=== PATIENT | female | born 1965 | race Caucasian/White ===

== ENCOUNTER 2017-06-26 09:40 | Day surgery (SDC) | payer OTHER ==
[~2017-06-26] VITALS: Ht 157.5 cm; Wt 56.7 kg
[2017-06-26 10:01] VITALS: BP 134/79
[2017-06-26 14:14] VITALS: BP 135/73
== END 2017-06-26 13:20 | disposition home or self-care (01) ==
LOC: GI 09:40 → OR 12:00 → GI 12:00
PROVIDERS: Internal Medicine Gastroenterology
PROC: 0D758ZZ Dilation of Esophagus, Via Natural or Artificial Opening Endoscopic (ICD-10-PCS; principal; 2017-06-26 10:30)
PROC: 0DB68ZX Excision of Stomach, Via Natural or Artificial Opening Endoscopic, Diagnostic (ICD-10-PCS; 2017-06-26 10:30)
PROC: 0DB58ZX Excision of Esophagus, Via Natural or Artificial Opening Endoscopic, Diagnostic (ICD-10-PCS; 2017-06-26 10:30)
PROC: 0DBN8ZZ Excision of Sigmoid Colon, Via Natural or Artificial Opening Endoscopic (ICD-10-PCS; 2017-06-26 10:30)
DX: K22.2 Esophageal obstruction (principal); K57.30 Diverticulosis of large intestine without perforation or abscess without bleeding; D12.5 Benign neoplasm of sigmoid colon; Z12.11 Encounter for screening for malignant neoplasm of colon; Z68.22 Body mass index [BMI] 22.0-22.9, adult
CPT/HCPCS: 43235; 45378; J1200; J1610; J2250; J3010; J3490